=== PATIENT | female | born 1995 | race Caucasian/White ===

== ENCOUNTER 2019-10-28 11:30 | Emergency (ER) | payer BC, SELFPAY ==
--- NOTE | ~2019-10-28 | XR_ITS ---
EXAMINATION: XR abdomen/kub 1V EXAM DATE: 10/28/2019 12:53 INDICATION: Nausea vomiting diarrhea. Started last night. TECHNIQUE: Frontal projection(s) of the abdomen for interpretation. There is no prior study for nadeen stewart. FINDINGS: There is expected amount of colonic stool and gas. No small bowel dilation, nonobstructiv e bowel gas pattern. There are no suspicious calcifications identified. There is no organomegaly suspected. The bones are unremarkable. There are cholecystectomy clips. IMPRESSION: Unremarkable abdomen x-ray exam. Reviewed, dictated and finalized at location [facility]
--- NOTE | 2019-10-28 11:35 | ED.GENADULT ---
HPI - General Adult General Chief complaint: Abdominal Pain Stated complaint: vomitting/stomach/lower back pain Time Seen by Provider: 10/28/19 11:44 Source: patient Mode of arrival: ambulatory Limitations: no limitations History of Present Illness HPI narrative: 24-year-old female patient presents to the [facility] with complaints of nausea vomiting diarrhea since last night. Patient states her symptoms started abruptly at 11 PM last night and states that she has been vomiting about 20 times. Patient states she has been unable to keep anything down since last night. Patient denies any fevers that she is aware of but states she has had some chills. Patient also notices some low back pain. Patient denies any pain with urination denies any severe abdominal pain. Patient states that she did not get a flu shot this year but denies any runny nose, sore throat or ear pain. Patient denies any cough, chest pain or shortness of breath. Patient states that she does work at an [employer] and is requesting an work note for today. Patient denies or breast-feeding but states that she is sexually active and could be . Related Data Allergies Allergy/AdvReac Type Severity Reaction Status Date / Time No Known Allergies Allergy Verified 10/28/19 11:41 Review of Systems Review of Systems: Narrative: CONSTITUTIONAL: Denies fever, chills, or sweats. EYES: Denies visual changes, redness, or discharge. ENT: Denies rhinorrhea, congestion, sore throat, or otalgia. CARDIOVASCULAR: Denies chest pain, palpitations, or edema. RESPIRATORY: Denies cough or dyspnea. GASTROINTESTINAL: Denies abdominal pain, positive nausea, vomiting, and diarrhea. GENITOURINARY: Denies dysuria or hematuria. SKIN: Denies rash or itching. MUSCULOSKELETAL: Positive low back pain, denies joint pain, or myalgia. NEUROLOGIC: Denies headache, numbness, or weakness. PSYCHIATRIC: Denies anxiety or depression. PMFSH Social History Social History Gender identity (if verbalized by the patient): Female Comments At the time of my signature I agree with nursing past medical history, surgical, social, and family history. There is no relevant family history pertinent to the presenting complaint. Exam Narrative: Exam Narrative: GENERAL: Well-appearing, well-nourished, and in no acute distress. HEAD: Normocephalic, atraumatic. EYES: PERRLA and EOMI. ENT: Nares clear, no rhinorrhea or epistaxis. Mucous membranes moist. Bilateral TMs are clear with no erythema or foreign bodies in the canal. Posterior pharynx with no erythema, tonsillectomy, exudates or lesions present. NECK: Supple. No lymphadenopathy CHEST: Clear to auscultation. No respiratory distress. HEART: Regular rate and rhythm. No murmur heard. Normal peripheral pulses. ABDOMEN: Soft, flat, nondistended. No guarding, rebound tenderness, or rigid. No pulsatilla masses. Bowel sounds present in all four quadrants. No organomegaly. Negative Trivedi?s sign. No periumbicial tenderness. No Supra public tenderness or distension. Good femoral pulses bilaterally. No hernia noted. No scars or surface trauma. No CVA tenderness on percussion. EXTREMITIES: Normal range of motion. No edema. SKIN: Warm, dry, no rash. NEURO: No focal deficits. Alert and oriented x3. Course Reevaluation(s) Reevaluation #1: Reevaluated patient. Patient states that she is feeling a lot better after receiving Zofran and is able to keep down water. Discussed with her that her test today is negative and her urine dip does show some leukocytes as well as obvious slight dehydration. Discussed with her that it also does show trace of blood and given the fact that she had the symptoms of nausea vomiting diarrhea that came on all of a sudden with a trace of blood and complaining of low back pain I think we should do a KUB to rule out any kidney stones. Patient is agreement with this plan of c
[2019-10-28 11:42] VITALS: BP 106/66; PULSE 81; RESP 18; TEMP 37.6; O2SAT 99
[2019-10-28] MEDS: ONDANSETRON HCL ODT 4 MG TABLET PO (11:50)
== END 2019-10-28 13:07 | disposition home or self-care (01) ==
PROVIDERS: Emergency Provider Nurse Practitioner Family
DX: A08.4 Viral intestinal infection, unspecified (principal)
CPT/HCPCS: 74018; 81003; 81025; 99213; A9270; G0463